=== PATIENT | female | born 1945 | race Two or more races ===

== ENCOUNTER 2024-05-08 13:18 | Emergency (ER) | payer MEDICAID, SELFPAY ==
[2024-05-08 14:17] VITALS: BP 148/82; PULSE 82; RESP 19; TEMP 36.9; O2SAT 97; BMI 38.5
--- NOTE | 2024-05-08 14:20 | PD.EDRME ---
Rapid Medical Screening Exam E Arrival date/time: 05/08/24 13:18 78-year-old female history of anxiety, CHF hypertension presents to the emergency department with complaints of chest pain, shortness of breath x 1 day. I have greeted and performed a focused initial assessment of this patient. Initial appropriate labs ordered at this time. A comprehensive ED assessment and evaluation of the patient and analysis of all test and completion of medical decision making process will be conducted by additional ED provider. Chief Complaint: General Adult/Misc Complain Time Seen by Provider: 05/08/24 14:00 Vital signs: Vital Signs Temperature 98.5 F 05/08/24 14:17 Pulse Rate 82 05/08/24 14:17 Respiratory Rate 19 05/08/24 14:17 Blood Pressure 148/82 H 05/08/24 14:17 Pulse Oximetry (%) 97 05/08/24 14:17 Oxygen Delivery Method Room Air 05/08/24 14:17
--- NOTE | 2024-05-08 14:21 | XR_ITS ---
Examination: PA chest single view TECHNIQUE: Upright PA chest single view Exam date and time: May 08, 2024 1551 hours Comparison October 11, 2021 INDICATIONS: Chest pain today. FINDINGS: Mild prominence cardiac contour Opacity left base obscuring detail left hemidiaphragm No pulmonary edema Right internal jugular Port-A-Cath tip satisfactory position SVC IMPRESSION: Early pneumonia left base
--- NOTE | 2024-05-08 14:21 | EKG_ITS ---
[facility] Test Date: 2024-05-08 Pat Name: JUAN DIEGO AMARAL Department: Room: - Gender: Female Information Technology Technician: : 1945 Requested By: Carri Grider ([facility]) Ivet Order Number: [id number] Reading MD: Carri Grider ([facility]) Ivet Measurements Intervals [place] Rate: 69 P: [place]: QRS: 9 QRSD: 101 T: 25 QT: 432 QTc: 463 Interpretive Statements SINUS RHYTHM WITH 2ND DEGREE AV BLOCK, MOBITZ TYPE II INCOMPLETE RIGHT BUNDLE BRANCH BLOCK [90+ ms QRS DURATION, TERMINAL R IN V1/V2, 40+ ms S IN I/aVL/V4/V5/V6] Compared to ECG 10/18/2021 14:44:30 Incomplete right bundle-branch block now present Atrial fibrillation no longer present Ventricular premature complex(es) no longer present Aberrant conduction of supraventricular beat(s) no longer present /store/S0/[id number].pdf
[2024-05-08 14:56] LABS: Basophils # (Auto) 0.1 Thou/mm3 (0.0-0.2); Basophils % (Auto) 1 % (0-2.5); Eosinophils # (Auto) 0.2 Thou/mm3 (0.0-0.5); Eosinophils % (Auto) 2 % (0-10); Immature Granulocytes % (Auto) 0 % (0-0); Lymphocytes # (Auto) 7.8 Thou/mm3 (1.0-4.8); Lymphocytes % (Auto) 88 % (10-50); Mean Corpuscular HGB Conc 33.3 g/dl (31.0-37.0); Mean Corpuscular Hemoglobin 33.6 pg (25.0-35.0); Mean Corpuscular Volume 101 fL (80-100); Monocytes # (Auto) 0.8 Thou/mm3 (0.0-0.8); Monocytes % (Auto) 10 % (0-12); Neutrophils % (Auto) 0 % (37-80); Nucleated Red Blood Cell % 0 /100 WBC (0); Platelet Count 194 Thou/mm3 (140-440); RDW Standard Deviation 49.3 fL (36.4-46.3); Red Blood Count 3.87 Miln/mm3 (4.00-5.20); White Blood Count 8.9 Thou/mm3 (3.6-11.0)
[2024-05-08 15:10] LABS: INR 1.4 (0.9-1.3); Partial Thromboplastin Time 33.6 Seconds (22.0-36.0); Prothrombin Time 14.6 Seconds (9.0-12.2)
[2024-05-08 15:14] LABS: B-Type Natriuretic Peptide 282 pg/mL (0-100)
[2024-05-08 15:15] LABS: Alanine Aminotransferase 11 U/L (10-49); Albumin, Serum 4.4 gm/dL (3.4-4.8); Albumin/Globulin Ratio 2.2 (1.2-2.2); Alkaline Phosphatase 92 U/L (46-116); Anion Gap 8 (7-16); Aspartate Amino Transferase 21 U/L (0-34); BUN/Creatinine Ratio 19 Ratio (12-20); Bilirubin,Total 0.6 mg/dL (0.3-1.2); Blood Urea Nitrogen 21 mg/dL (9-23); Calcium 9.6 mg/dL (8.3-10.6); Calcium (Corrected) 9.6 mg/dL (8.5-10.1); Carbon Dioxide 30.3 mMol/L (20.0-31.0); Chloride 104 mMol/L (98-107); Creatinine (Component) 1.1 mg/dL (0.6-1.3); Glucose 87 mg/dL (74-106); Lipase 31 U/L (12-53); Magnesium 2.2 mg/dL (1.6-2.6); Osmolality,Calculated 285 (275-295); Potassium 4.2 mMol/L (3.4-5.1); Sodium 142 mMol/L (136-145); Total Protein 6.4 gm/dL (5.7-8.2); Troponin I < 0.020 ng/mL (0.0-0.045); eGFR 51 See Note
[2024-05-08 15:45] LABS: Path Review Blood Smear Sent to Pathologist
[2024-05-08 19:32] VITALS: BP 137/59; PULSE 68; RESP 17; TEMP 36.8; O2SAT 95
--- NOTE | 2024-05-08 20:35 | EDNOTE_ITS ---
ED General RME/HPI General Chief complaint: General Adult/Misc Complain Stated complaint: HIGH B/P x1 WEEK Time Seen by Provider: 05/08/24 14:00 Source: patient Arrival date/time: 05/08/24 13:18 78-year-old female past medical history of anxiety, CHF, hypertension, and lymphoma presents emergency department complaining of chest pain and shortness of breath for 1 day. Patient denies any fever, chills, vomiting, diarrhea, or any other associated symptom. Mode of arrival: ambulatory Limitations: no limitations RME / HPI RME / HPI narrative: 05/08/24 13:18 78-year-old female history of anxiety, CHF hypertension presents to the emergency department with complaints of chest pain, shortness of breath x 1 day. I have greeted and performed a focused initial assessment of this patient. Initial appropriate labs ordered at this time. A comprehensive ED assessment and evaluation of the patient and analysis of all test and completion of medical decision making process will be conducted by additional ED provider. Related Data Home Medications ?Medication ?Instructions ?Recorded ?Confirmed alprazolam 0.25 mg tablet 0.25 mg PO QDAY 07/13/20 10/12/21 ascorbic acid (vitamin C) 500 mg 500 mg PO QDAY 07/13/20 10/12/21 tablet (Vitamin C) ferrous sulfate 325 mg (65 mg 325 mg PO QDAY 07/13/20 10/12/21 iron) tablet furosemide 40 mg tablet 40 mg PO DAILY 07/13/20 10/12/21 ibuprofen 600 mg tablet 600 mg PO TID PRN Pain 10/12/21 10/12/21 losartan 100 1 tab PO QDAY 10/12/21 10/12/21 mg-hydrochlorothiazide 25 mg tablet meloxicam 7.5 mg tablet 7.5 mg PO QDAY 10/12/21 10/12/21 potassium chloride 8 mEq 1 cap PO BID 10/12/21 10/12/21 capsule,extended release prednisone 20 mg tablet 1 tab PO Q8H 10/12/21 10/12/21 rivaroxaban 20 mg tablet (Xarelto) 1 tab PO QDAY 10/12/21 10/12/21 Previous Rx's ?Medication ?Instructions ?Recorded amoxicillin 875 mg-potassium 1 tab PO BID 5 days #10 tabs 05/08/24 clavulanate 125 mg tablet doxycycline hyclate 100 mg capsule 100 mg PO BID 5 days #10 caps 05/08/24 Allergies Allergy/AdvReac Type Severity Reaction Status Date / Time sulfamethoxazole Allergy Unknown Verified 05/08/24 13:21 [From Bactrim] trimethoprim [From Bactrim] Allergy Unknown Verified 05/08/24 13:21 Review of Systems Review of Systems Systems Reviewed: All systems reviewed, normal except as documented Constitutional Constitutional: Reports system reviewed and no additional complaints, except as documented, Denies body ache(s), Denies chills and Denies fever(s) Eyes Eyes: Reports system reviewed and no additional complaints, except as documented and Denies change in vision ENT Ears, Nose, Mouth, and Throat: Reports system reviewed and no additional complaints, except as documented, Denies disequilibrium, Denies dizziness, Denies sore throat and Denies vertigo Cardiovascular Cardiovascular: Reports system reviewed and no additional complaints, except as documented, Reports chest pain and Reports dyspnea Respiratory Respiratory: Reports system reviewed and no additional complaints, except as documented, Denies chest congestion, Denies cough and Reports dyspnea Gastrointestinal Gastrointestinal: Reports system reviewed and no additional complaints, except as documented, Denies abdominal pain, Denies nausea and Denies vomiting Musculoskeletal Musculoskeletal: Reports system reviewed and no additional complaints, except as documented, Denies abnormal gait and Denies arthralgias Integumentary/Breasts Skin/Breast: Reports system reviewed and no additional complaints, except as documented, Denies erythema, Denies rash and Denies wounds Neurologic Neurologic: Reports system reviewed and no additional complaints, except as documented, Denies abnormal gait, Denies disequilibrium, Denies dizziness and Denies vertigo Past Medical History Past Medical History NEUROLOGIC: Positive Jim's Palsy; Negative Seizures CARDIAC: Positive Cardiac Disorders (HTN) and Hypertension; Negative Congestive Heart Failure RESPIRATORY: Positive Bronchitis; Negative Chronic Obstructive Pulmonary Disease (COPD) or Asthma GASTROINTESTINAL: Positive Gastrointestinal Disorders, Gall Bladder Disease and Obesity GENITOURINARY: Negative Renal Disease MUSCULOSKELETAL: Positive Arthritis ENDOCRINE: Negative Diabetes Mellitus Type 1 or Diabetes Mellitus Type 2 HEMATOLOGIC: Positive Blood Disorders; Negative Sickle Cell Disease PSYCHO/SOCIAL: Positive Anxiety OTHER HISTORY: Positive Chemotherapy and Cancer (History of B cell lymphoma treated with chemo last completed about a year); Negative Blood Transfusions, Blood Transfusion Reaction or Anesthesia Reactions Social History SMOKING STATUS: Never smoker SUBSTANCE USE: does not use ED Exam General Limitations: Present no limitations General appearance: Present alert and in no apparent distress Head Head exam: Present atraumatic Eye Eye exam: Present normal appearance, PERRL and EOMI ENT ENT exam: Present normal exam, normal oropharynx and mucous membranes moist Neck Neck exam: Present normal inspection, full ROM and trachea midline Chest Chest inspection: Present normal inspection and symmetric chest wall rise Respiratory Respiratory exam: Present normal lung sounds bilaterally Cardiovascular Cardiovascular exam: Present regular rate, normal rhythm and normal heart sounds Abdominal Exam Abdominal exam: Present soft and normal bowel sounds Extremities Exam Extremities exam: Present normal inspection and full ROM Back Exam Back exam: Present normal inspection and full ROM Neurological Exam Neurological exam: Present alert, oriented X3 and CN II-XII intact Psychiatric Psychiatric exam: Present normal affect and normal mood Skin Skin exam: Present warm, dry, intact and normal color Course Quality Measures none Orders Category Date Time Status Education And Development Manager STAT Care 05/08/24 14:21 Completed Continuous Pulse Oximetry ONCE Care 05/08/24 14:21 Completed EKG (ED ONLY) *Do not use* NOW Care 05/08/24 14:21 Completed EKG (ED Only) Stat Exams 05/08/24 14:21 Draft XR chest 1V portable Stat Exams 05/08/24 14:21 Completed B-Type Natriuretic Peptide Stat Lab 05/08/24 14:42 Completed CBC Stat Lab 05/08/24 14:42 Completed Comprehensive Metabolic Panel Stat Lab 05/08/24 14:42 Completed Lipase Stat Lab 05/08/24 14:42 Completed Magnesium Stat Lab 05/08/24 14:42 Completed Partial Thromboplastin Time Stat Lab 05/08/24 14:42 Completed Path Review Blood Smear Stat Lab 05/08/24 14:42 Completed Prothrombin Time with INR Stat Lab 05/08/24 14:42 Completed Troponin I Stat Lab 05/08/24 14:42 Completed cefTRIAXone [Rocephin] 1,000 mg Med 05/08/24 20:39 Discontinued Lidocaine 1% 20 ml [Xylocaine 1% 20 ML] 2.1 ml IM X1 Vital Signs Vital signs: Vital Signs Temperature 98.5 F 05/08/24 14:17 Pulse Rate 82 05/08/24 14:17 Respiratory Rate 19 05/08/24 14:17 Blood Pressure 148/82 H 05/08/24 14:17 Pulse Oximetry (%) 97 05/08/24 14:17 Oxygen Delivery Method Room Air 05/08/24 14:17 97% room air within normal limits Procedures -ED EKG Interpretation #1: Date of EK05/08/24 Time of EK:28 Rate: 69 Interpretation: Interpreted by me EKG Impression: Normal sinus rhythm, Bundle branch block and No ischemic changes MDM Patient data External records reviewed:: [facility] previous records Clinical information provided by:: patient and family Social determinants that could affect healthcare access:: none Patient has the following chronic illnesses:: See chart How is presenting disease/condition affected by chronic disease/condition?: u neffected by Evaluation data The following diagnostics were reviewed and interpreted by me:: lab results, radiology exam(s) and EKG tracing(s) Lab and/or radiology exams considered but not ordered:: Ordered Interpretation Summary: Interpreted by me Medications Medications considered but not ordered:: Ordered Medication administrations:: Medication Administration History Discontinued Medications Ceftriaxone Sodium 1,000 mg/ (Lidocaine HCl 2.1 ml) 0 mg IM X1 ONE Stop: 05/08/24 20:40 Last Admin: 05/08/24 20:59 Dose: 1,000 mg Documented By: KF Given Consultations Consultation(s) initiated? (list below): No Diagnosis Differential Diagnosis ED Complaint MDM: Pneumothorax, NSTEMI, CHF exacerbation, cardiac arrhythmia Most likely diagnosis given after review of the tests above:: Pneumonia Admission Indicated Admission indicated?: not indicated Explain why admission is indicated or not indicated:: No admission criteria Admission Request Was there a request for admission?: No Disposition Plan Disposition Plan: Discharge Discharge Attestation Discharge Attestation: The patient and all family members were given an opportunity to ask questions and understood the discharge instructions. Discharge instructions specifically effects, indications for sooner follow up or return to the emergency department, and the expected course of current diagnosis. Patient condition: Stable Medical Decision Making MDM Narrative MDM Narrative: 78-year-old female past medical history of anxiety, CHF, hypertension, and lymphoma presents emergency department complaining of chest pain and shortness of breath for 1 day. Patient denies any fever, chills, vomiting, diarrhea, or any other associated symptom. CBC unremarkable for any leukocytosis or anemia. CMP was unremarkable. BNP 282. Troponin within normal limits. EKG sinus rhythm with AV block Mobitz type II patient reports she is currently on amiodarone for atrial fibrillation and reports has visit with her car installations supervisor tomorrow morning. Chest x-ray impression early left base pneumonia. Will treat with antibiotics given Rocephin IM and discharged on dual therapy Augmentin and doxycycline to avoid medication for prolonged QT. Urinalysis was unremarkable. Patient appears nontoxic and is hemodynamically stable. Patient and son instructed have close follow-up with primary care provider and also to keep her appointment with car installations supervisor tomorrow morning instructed to return immediately to emergency department for any worsening chest pain, shortness of breath, or as needed. Differential Diagnosis Differential Diagnosis: Pneumothorax, NSTEMI, CHF exacerbation, cardiac arrhythmia Lab Data 05/08/24 14:42 05/08/24 14:42 Labs: Lab Results 05/08/24 Range/Units 14:42 WBC 8.9 (3.6-11.0) Thou/mm3 RBC 3.87 L (4.00-5.20) Miln/mm3 Hgb 13.0 (12.0-16.0) g/dL Hct 39.0 (36.0-46.0) % MCV 101 H (80-100) fL MCH 33.6 (25.0-35.0) pg MCHC 33.3 (31.0-37.0) g/dl RDW Std Deviation 49.3 H (36.4-46.3) fL Plt Count 194 (140-440) Thou/mm3 Neut % (Auto) 0 L (37-80) % Lymph % (Auto) 88 H (10-50) % [place] % (Auto) 10 (0-12) % Eos % (Auto) 2 (0-10) % Baso % (Auto) 1 (0-2.5) % Neut # (Auto) 0.0 L (1.8-7.7) Thou/mm3 Lymph # (Auto) 7.8 H (1.0-4.8) Thou/mm3 [place] # (Auto) 0.8 (0.0-0.8) Thou/mm3 Eos # (Auto) 0.2 (0.0-0.5) Thou/mm3 Baso # (Auto) 0.1 (0.0-0.2) Thou/mm3 Immature Gran # (Auto) 0.00 (0.00-0.00) Thou/mm3 Absolute Nucleated RBC 0.00 (0.00-0.00) Thou/mm3 Immature Gran % 0 (0-0) % Nucleated RBC % 0 (0) /100 WBC Smear Path Review Sent to Pathologist PT 14.6 H (9.0-12.2) Seconds INR 1.4 H (0.9-1.3) APTT 33.6 (22.0-36.0) Seconds Sodium 142 (136-145) mMol/L Potassium 4.2 (3.4-5.1) mMol/L Chloride 104 (98-107) mMol/L Carbon Dioxide 30.3 (20.0-31.0) mMol/L Anion Gap 8 (7-16) BUN 21 (9-23) mg/dL Creatinine 1.1 (0.6-1.3) mg/dL Estim Creat Clear Calc 43.0 L (>60) mL/min eGFR 51 L (60 - ) See Note BUN/Creatinine Ratio 19 (12-20) Ratio Glucose 87 (74-106) mg/dL Calculated Osmolality 285 (275-295) Calcium 9.6 (8.3-10.6) mg/dL Corrected Calcium 9.6 (8.5-10.1) mg/dL Magnesium 2.2 (1.6-2.6) mg/dL Total Bilirubin 0.6 (0.3-1.2) mg/dL AST 21 (0-34) U/L ALT 11 (10-49) U/L Alkaline Phosphatase 92 (46-116) U/L Troponin I < 0.020 (0.0-0.045) ng/mL B-Natriuretic Peptide 282 H (0-100) pg/mL Total Protein 6.4 (5.7-8.2) gm/dL Albumin 4.4 (3.4-4.8) gm/dL Globulin 2.0 L (2.3-3.5) gm/dL Albumin/Globulin Ratio 2.2 (1.2-2.2) Lipase 31 (12-53) U/L Discharge Plan Plan Patient Disposition: HOME (Self Care) Disposition Comment: Stable Prescriptions/Referrals Prescriptions/Med Rec: New doxycycline hyclate 100 mg capsule 100 mg PO BID 5 Days Qty: 10 0RF amoxicillin-pot clavulanate 875-125 mg tablet 1 tab PO BID 5 Days Qty: 10 0RF No Action furosemide 40 mg tablet 40 mg PO DAILY Patient Comments: TAKE ONE TABLET BY MOUTH EVERY DAY alprazolam 0.25 mg Tablet 0.25 mg PO QDAY ferrous sulfate 325 mg (65 mg iron) Tablet 325 mg PO QDAY ascorbic acid (vitamin C) [Vitamin C] 500 mg Tablet 500 mg PO QDAY potassium chloride 8 mEq capsule, extended release 1 cap PO BID Patient Comments: TAKE ONE CAPSULE BY MOUTH TWICE DAILY WITH FOOD prednisone 20 mg tablet 1 tab PO Q8H Patient Comments: TAKE TWO TABLETS BY MOUTH EVERY DAY FOR FOUR DAYS ibuprofen 600 mg Tablet 600 mg PO TID PRN (Reason: Pain) meloxicam 7.5 mg Tablet 7.5 mg PO QDAY losartan-hydrochlorothiazide 100-25 mg tablet 1 tab PO QDAY Patient Comments: TAKE ONE TABLET BY MOUTH EVERY DAY Xarelto 20 mg tablet 1 tab PO QDAY Patient Comments: TAKE ONE TABLET BY MOUTH AT BEDTIME Referrals: Vinay Stroud [Primary Care Provider] - In 1 week Problem List Clinical Impression: Pneumonia Patient/Caregiver Discharge Instructions Discharge Activity: activity as tolerated Education Materials: ED Pneumonia (Adult) Additional Instructions: Take antibiotics as prescribed. Keep your appointment with your car installations supervisor tomorrow as we discussed. Follow-up with your primary care provider in 2 to 3 days. Return to emergency department for any shortness of breath increased chest pain or as needed. Print Language: Turkish Stand Alone Forms: Barbara Award Info., Patient Portal Info Letter PA/TRIMMING CUTTER Supervising Physician PA/TRIMMING CUTTER Supervising Physician: Dr. Cannon
[2024-05-08] MEDS: cefTRIAXone 1,000 MG, LIDOCAINE 1% 20 ML 2.1 ML IM (20:59)
== END 2024-05-08 21:03 | disposition home or self-care (01) ==
PROVIDERS: Nurse Practitioner Primary Care; Emergency Provider Emergency Medicine; PCP Physician Assistant
DX: J18.9 Pneumonia, unspecified organism (principal); I11.0 Hypertensive heart disease with heart failure; I50.9 Heart failure, unspecified
CPT/HCPCS: 36415; 71045; 80053; 83690; 83735; 83880; 84484; 85025; 85610; 85730; 93005; 96372; 99283; J0696; J3490

== ENCOUNTER → 2024-05-29 | Outpatient (CLI) | payer MEDICAID, SELFPAY ==
--- NOTE | 2024-05-29 11:00 | XR_ITS ---
Examination: CT chest with intravenous contrast CT abdomen with intravenous contrast CT pelvis with intravenous contrast 2-D coronal and sagittal reconstructions Time of exam: May 29, [address] abdomen October 19, 2021 INDICATIONS: Diagnosis B-cell lymphoma diagnosis 2019, also history colon surgery 2019, restaging CTDI: vol (mGy) : 11.5 DLP: (mGycm): 787 Technique: Multiple axial images of the chest, abdomen and pelvis with intravenous contrast, 3.0 mm slice thickness. Images obtained post intravenous injection Isovue 370 60 cc. 2-D sagittal and coronal reconstructions. Low dose protocols were performed. One or more of the following dose reduction techniques were used; automated exposure control, adjustment of the mA and/or KV according to patient size, use of iterative reconstruction technique. Findings: No thoracic aortic aneurysm dilatation or dissection No pulmonary artery emboli No paratracheal tracheobronchial or bronchopulmonary adenopathy 2 mm pulmonary nodule posterior right lung image 160 8mm pulmonary nodule right lower lobe image 259 No lobar pneumonia Liver mildly irregular in contour 13 mm splenic lesion No pancreatic mass Multiple lymph nodes in the mesentery measuring up to 12 mm Multiple pericaval periaortic lymph nodes, the largest pericaval 15 mm which has increased in size compared to the prior study No hydronephrosis Numerous much larger lymph nodes in the lower mesentery, measuring up to 24 mm and 36 mm in dimension No bowel obstruction Small common iliac and external iliac and common femoral lymph nodes Mild free fluid in the pelvis Retroverted uterus Urinary bladder intact Moderate osteopenia IMPRESSION: Pulmonary nodules as above, with this study as baseline recommend continued 6 month follow-up CT chest without contrast 13 mm solid splenic lesion Marked progression of mesenteric abdominal and pelvic lymphadenopathy compared to October 19, 2021
== END | disposition home or self-care (01) ==
PROVIDERS: PCP Physician Assistant; Referring Provider Internal Medicine Hematology & Oncology; Visit Provider Internal Medicine Hematology & Oncology
DX: R91.8 Other nonspecific abnormal finding of lung field (principal); D73.89 Other diseases of spleen; R59.0 Localized enlarged lymph nodes; C83.08 Small cell B-cell lymphoma, lymph nodes of multiple sites
CPT/HCPCS: 71260; 74177; A4649; Q9967

== ENCOUNTER → 2024-08-03 | Outpatient (CLI) | payer MEDICAID, SELFPAY ==
--- NOTE | 2024-08-03 16:20 | XR_ITS ---
Examination: PA lateral chest 2 views Technique: Upright PA lateral chest 2 views Exam date and time: August 03, 2024 1628 hrs. Comparison May 08, 2024 Indications: Coughing beginning 2 weeks ago. Findings: Significant pneumonia left base Mild enlargement cardiac contour No pulmonary edema. Right internal jugular Port-A-Cath tip SVC Prominent osteopenia Impression: Significant pneumonia left base
== END | disposition home or self-care (01) ==
PROVIDERS: PCP Physician Assistant; Referring Provider Nurse Practitioner Family; Visit Provider Nurse Practitioner Family
DX: J18.9 Pneumonia, unspecified organism (principal)
CPT/HCPCS: 71046

== ENCOUNTER 2024-12-06 10:56 | Emergency (ER) | payer MEDICAID, SELFPAY ==
[2024-12-06 11:15] VITALS: BP 142/81; PULSE 89; RESP 18; TEMP 36.6; O2SAT 96
[2024-12-06 11:16] VITALS: BMI 35.9
--- NOTE | 2024-12-06 11:21 | EKG_ITS ---
[facility] Test Date: 2024-12-06 Pat Name: JUAN DIEGO AMARAL Department: Room: - Gender: Female Youth Officer: : 1945 Requested By: Manan Feldman Order Number: [id number] Reading MD: Manan Feldman Measurements Intervals [place] Rate: 84 P: [place]: QRS: 18 QRSD: 95 T: 1 QT: 391 QTc: 463 Interpretive Statements ATRIAL FIBRILLATION LOW QRS VOLTAGE IN PRECORDIAL LEADS [QRS DEFLECTION < 1.0 mV IN CHEST LEADS] ABNORMAL RHYTHM ECG Compared to ECG 05/08/2024 14:28:51 Low QRS voltage now present Sinus rhythm no longer present Incomplete right bundle-branch block no longer present /store/S0/[id number]
--- NOTE | 2024-12-06 11:21 | XR_ITS ---
Examination: AP chest single view TECHNIQUE: AP sitting portable chest single view Date and time: December 06, 2024 1133 hours Comparison August 03, 2024 INDICATIONS: Chest pain shortness of breath beginning 2 days ago FINDINGS: Mild enlargement cardiac contour Mild opacity left base with small left pleural effusion Right internal jugular Port-A-Cath tip satisfactory position IMPRESSION: Mild parenchymal disease left base which may represent pneumonia with small left pleural effusion
--- NOTE | 2024-12-06 11:22 | PD.EDEXREM ---
ED Extremity Problem RME/HPI General Chief complaint: General Adult/Misc Complain Stated complaint: SWOLLEN LEGS Time Seen by Provider: 12/06/24 11:17 Source: patient and family Arrival date/time: 12/06/24 10:56 Mode of arrival: ambulatory Limitations: no limitations RME / HPI RME / HPI Narrative: 79-year-old female is here today with family members. She is here today with chronic lower leg edema and pain. She states she has had this for years but is gotten worse the last 15 days. She does have a history of anxiety, heart failure, and hypertension. She has no chest pain or shortness of breath. No near syncopal episodes. She has no other acute complaints. Related Data Home Medications ?Medication ?Instructions ?Recorded ?Confirmed alprazolam 0.25 mg tablet 0.25 mg PO QDAY 07/13/20 10/12/21 ascorbic acid (vitamin C) 500 mg 500 mg PO QDAY 07/13/20 10/12/21 tablet (Vitamin C) ferrous sulfate 325 mg (65 mg 325 mg PO QDAY 07/13/20 10/12/21 iron) tablet furosemide 40 mg tablet 40 mg PO DAILY 07/13/20 10/12/21 ibuprofen 600 mg tablet 600 mg PO TID PRN Pain 10/12/21 10/12/21 losartan 100 1 tab PO QDAY 10/12/21 10/12/21 mg-hydrochlorothiazide 25 mg tablet meloxicam 7.5 mg tablet 7.5 mg PO QDAY 10/12/21 10/12/21 potassium chloride 8 mEq 1 cap PO BID 10/12/21 10/12/21 capsule,extended release prednisone 20 mg tablet 1 tab PO Q8H 10/12/21 10/12/21 rivaroxaban 20 mg tablet (Xarelto) 1 tab PO QDAY 10/12/21 10/12/21 Allergies Allergy/AdvReac Type Severity Reaction Status Date / Time sulfamethoxazole (From Allergy Unknown Verified 12/06/24 11:01 Bactrim) trimethoprim (From Bactrim) Allergy Unknown Verified 12/06/24 11:01 Review of Systems Review of Systems Systems Reviewed: All systems reviewed, normal except as documented ED Exam General Limitations: Present no limitations General appearance: Present alert and in no apparent distress Head Head exam: Present atraumatic Eye Eye exam: Present normal appearance, PERRL and EOMI ENT ENT exam: Present normal exam, normal oropharynx and mucous membranes moist Neck Neck exam: Present normal inspection, full ROM and trachea midline Chest Chest inspection: Present normal inspection and symmetric chest wall rise Respiratory Respiratory exam: Present normal lung sounds bilaterally Cardiovascular Cardiovascular exam: Present regular rate, normal rhythm and normal heart sounds Abdominal Exam Abdominal exam: Present soft and normal bowel sounds Extremities Exam Extremities exam: Present normal inspection, full ROM and pedal edema (+4 bilaterally ) Back Exam Back exam: Present normal inspection and full ROM Neurological Exam Neurological exam: Present alert and oriented X3 Psychiatric Psychiatric exam: Present normal affect and normal mood Skin Skin exam: Present warm, dry, intact and normal color Course Quality Measures none Orders Category Date Time Status EKG (ED ONLY) *Do not use* NOW Care 12/06/24 11:21 Completed EKG (ED Only) Stat Exams 12/06/24 11:21 Draft XR chest 1V Stat Exams 12/06/24 11:21 Completed BNP [B-Type Natriuretic Peptide] Stat Lab 12/06/24 11:46 Completed CBC Stat Lab 12/06/24 11:46 Completed CMP [Comprehensive Metabolic Panel] Stat Lab 12/06/24 11:46 Completed Mag [Magnesium] Stat Lab 12/06/24 11:46 Completed Furosemide [Lasix] Med 12/06/24 11:21 Discontinued 40 mg PO X1 ONE Vital Signs Vital signs: Vital Signs Temperature 97.8 F 12/06/24 11:15 Pulse Rate 89 12/06/24 11:15 Respiratory Rate 18 12/06/24 11:15 Blood Pressure 142/81 H 12/06/24 11:15 Pulse Oximetry (%) 96 12/06/24 11:15 Oxygen Delivery Method Room Air 12/06/24 11:15 Extremity Problem MDM Narrative MDM Narrative:: 79-year-old female is here today with family members. She is here today with chronic lower leg edema and pain. She states she has had this for years but is gotten worse the last 15 days. She does have a history of anxiety, heart failure, and hypertension. She has no chest pain or shortness of breath. No near syncopal episodes. She has no other acute complaints. On exam, patient is nontoxic. No visible signs distress. She has significant bilateral, lower leg edema. Work appears essentially unremarkable with the exception of a mild anemia with a hemoglobin of 10.0 and hematocrit at 31.0. There is no leukocytosis. Her BNP is 328. Patient received a dose of furosemide here. We discussed the need for close outpatient follow-up for further therapies and assessment. We discussed return precautions. Patient agrees to return as needed for any worsening emergent changes. She will otherwise start using compression stockings and contact her PCP. Patient data External records reviewed:: [facility] previous records and None Clinical information provided by:: patient and family Social determinants that could affect healthcare access:: none Patient has the following chronic illnesses:: Hypertension, CHF, chronic leg edema How is presenting disease/condition affected by chronic disease/condition?: exacerbated by Evaluation data The following diagnostics were reviewed and interpreted by me:: lab results and radiology exam(s) Lab and/or radiology exams considered but not ordered:: n/a Interpretation Summary: Findings consistent with CHF Medications / Prescriptions Medications or Prescriptions considered but not ordered:: n/a Medication administrations:: Medication Administration History Discontinued Medications Furosemide (Furosemide 40 Mg Tablet) 40 mg PO X1 ONE Stop: 12/06/24 11:22 Last Admin: 12/06/24 11:59 Dose: 40 mg Documented By: YOU see above Consultations Consultation(s) initiated? (list below): No Diagnosis Extremity Problem Differential Diagnosis: lower extremity edema Most likely diagnosis given after review of the tests above:: see above Admission Indicated Admission indicated?: not indicated Admission Request Was there a request for admission?: No Disposition Plan Disposition Plan: Discharge Discharge Attestation Discharge Attestation: The patient and all family members were given an opportunity to ask questions and understood the discharge instructions. Discharge instructions specifically effects, indications for sooner follow up or return to the emergency department, and the expected course of current diagnosis. Patient condition: Stable Discharge Plan Plan Patient Disposition: HOME (Self Care) Patient condition on transfer: Stable Prescriptions/Referrals Prescriptions/Med Rec: No Action furosemide 40 mg tablet 40 mg PO DAILY Patient Comments: TAKE ONE TABLET BY MOUTH EVERY DAY alprazolam 0.25 mg Tablet 0.25 mg PO QDAY ferrous sulfate 325 mg (65 mg iron) Tablet 325 mg PO QDAY ascorbic acid (vitamin C) [Vitamin C] 500 mg Tablet 500 mg PO QDAY potassium chloride 8 mEq capsule, extended release 1 cap PO BID Patient Comments: TAKE ONE CAPSULE BY MOUTH TWICE DAILY WITH FOOD prednisone 20 mg tablet 1 tab PO Q8H Patient Comments: TAKE TWO TABLETS BY MOUTH EVERY DAY FOR FOUR DAYS ibuprofen 600 mg Tablet 600 mg PO TID PRN (Reason: Pain) meloxicam 7.5 mg Tablet 7.5 mg PO QDAY losartan-hydrochlorothiazide 100-25 mg tablet 1 tab PO QDAY Patient Comments: TAKE ONE TABLET BY MOUTH EVERY DAY Xarelto 20 mg tablet 1 tab PO QDAY Patient Comments: TAKE ONE TABLET BY MOUTH AT BEDTIME Referrals: Vinay Stroud [Primary Care Provider] - In 1 week Problem List Clinical Impression: CHF (congestive heart failure), Leg edema Patient/Caregiver Discharge Instructions Education Materials: Coping with Heart Failure Additional Instructions: - Continue your furosemide as prescribed. - Start using compression stockings to assist with your edema. - It is very important that she follows up with her primary doctor to schedule close follow-up appointment. Consider outpatient workup to assess for possible valve incompetency. - Return to the emergency room at anytime for any worsening or emergent changes. Print Language: Lithuanian Stand Alone Forms: Barbara Award Info., Patient Portal Info Letter
[2024-12-06 11:59] VITALS: BP 114/70; PULSE 72
[2024-12-06 12:09] LABS: Basophils # (Auto) 0.0 Thou/mm3 (0.0-0.2); Basophils % (Auto) 0 % (0-2.5); Eosinophils # (Auto) 0.1 Thou/mm3 (0.0-0.5); Eosinophils % (Auto) 1 % (0-10); Hematocrit 31.0 % (36.0-46.0); Hemoglobin 10.0 g/dL (12.0-16.0); Immature Granulocytes Auto 0.12 Thou/mm3 (0.00-0.00); Lymphocytes # (Auto) 1.5 Thou/mm3 (1.0-4.8); Lymphocytes % (Auto) 20 % (10-50); Mean Corpuscular HGB Conc 32.3 g/dl (31.0-37.0); Mean Corpuscular Hemoglobin 32.1 pg (25.0-35.0); Mean Corpuscular Volume 99 fL (80-100); Monocytes # (Auto) 0.2 Thou/mm3 (0.0-0.8); Monocytes % (Auto) 2 % (0-12); Neutrophils # (Auto) 5.8 Thou/mm3 (1.8-7.7); Neutrophils % (Auto) 75 % (37-80); Nucleated Red Blood Cell # 0.00 Thou/mm3 (0.00-0.00); Nucleated Red Blood Cell % 0 /100 WBC (0); Platelet Count 224 Thou/mm3 (140-440); RDW Standard Deviation 54.4 fL (36.4-46.3); Red Blood Count 3.12 Miln/mm3 (4.00-5.20); White Blood Count 7.7 Thou/mm3 (3.6-11.0)
[2024-12-06 12:29] LABS: B-Type Natriuretic Peptide 328 pg/mL (0-100)
[2024-12-06 12:41] LABS: Alanine Aminotransferase 9 U/L (10-49); Albumin, Serum 3.6 gm/dL (3.4-4.8); Albumin/Globulin Ratio 2.1 (1.2-2.2); Alkaline Phosphatase 108 U/L (46-116); Anion Gap 10 (7-16); Aspartate Amino Transferase 12 U/L (0-34); BUN/Creatinine Ratio 13 Ratio (12-20); Bilirubin,Total 1.1 mg/dL (0.3-1.2); Blood Urea Nitrogen 17 mg/dL (9-23); Calcium 9.0 mg/dL (8.3-10.6); Calcium (Corrected) 9.3 mg/dL (8.5-10.1); Carbon Dioxide 32.3 mMol/L (20.0-31.0); Chloride 93 mMol/L (98-107); Creatinine (Component) 1.3 mg/dL (0.6-1.3); Estimated Creatinine Clearance 31.7 mL/min (>60); Globulin 1.7 gm/dL (2.3-3.5); Glucose 145 mg/dL (74-106); Magnesium 1.6 mg/dL (1.6-2.6); Osmolality,Calculated 274 (275-295); Potassium 3.3 mMol/L (3.4-5.1); Sodium 135 mMol/L (136-145); Total Protein 5.3 gm/dL (5.7-8.2); eGFR 42 See Note
[2024-12-06 13:07] VITALS: BP 116/69; PULSE 76; RESP 18; TEMP 36.9; O2SAT 96
== END 2024-12-06 13:39 | disposition home or self-care (01) ==
PROVIDERS: Physician Assistant Medical; Emergency Provider Emergency Medicine; PCP Physician Assistant
DX: I11.0 Hypertensive heart disease with heart failure (principal); I50.9 Heart failure, unspecified; F41.9 Anxiety disorder, unspecified
CPT/HCPCS: 36415; 71045; 80053; 83735; 83880; 85025; 93005; 99283; A9270

== ENCOUNTER 2024-12-16 12:00 | Emergency (ER) | payer MEDICAID, SELFPAY ==
[2024-12-16 12:04] VITALS: BMI 34.3
--- NOTE | 2024-12-16 12:08 | EKG_ITS ---
[facility] Test Date: 2024-12-16 Pat Name: JUAN DIEGO AMARAL Department: Room: - Gender: Female [employer]: : [id number] Requested By: ED Temporary Provider Order Number: [id number] Reading MD: ED Temporary Provider Measurements Intervals [place] Rate: 73 P: -66 NM: 94 QRS: 15 QRSD: 106 T: -10 QT: 390 QTc: 431 Interpretive Statements JUNCTIONAL RHYTHM INCOMPLETE RIGHT BUNDLE BRANCH BLOCK [90+ ms QRS DURATION, TERMINAL R IN V1/V2, 40+ ms S IN I/aVL/V4/V5/V6] ABNORMAL RHYTHM ECG Compared to ECG 12/06/2024 11:42:19 Junctional rhythm now present Incomplete right bundle-branch block now present Atrial fibrillation no longer present /store/S0/[id number]/ecg/[id number].pdf
[2024-12-16 12:39] VITALS: BP 94/63; PULSE 81; RESP 18; TEMP 36.8; O2SAT 96
--- NOTE | 2024-12-16 12:55 | XR_ITS ---
Exam: Chest 1 view, AP Date and time of exam: 12/16/2024, 1:11 PM INDICATION: Lower leg edema CHF Comparison: 12/06/2024 Findings: Stable right-sided Port-A-Cath. Stable cardiomegaly. Stable blunting of the left costophrenic angle with areas of increased density in the left lung base. Blunting the right costophrenic angle Remaining zones are clear. Impression: Stable cardiomegaly. Likely bilateral effusions, left greater than right with associated basilar atelectasis versus infiltrate.
--- NOTE | 2024-12-16 12:56 | PD.EDRME ---
Rapid Medical Screening Exam RME Arrival date/time: 12/16/24 12:00 Chief Complaint: General Adult/Misc Complain Time Seen by Provider: 12/16/24 12:39 Vital signs: Vital Signs Temperature 98.2 F 12/16/24 12:39 Pulse Rate 81 12/16/24 12:39 Respiratory Rate 18 12/16/24 12:39 Blood Pressure 94/63 12/16/24 12:39 Pulse Oximetry (%) 96 12/16/24 12:39 Oxygen Delivery Method Room Air 12/16/24 12:39 RME Narrative: 79-year-old female here with chest pain/sob hx chf and lymphoma. Currently on chemo has a port. Followed by oncology in [place]. States recently was taken off Lasix although she has heart failure due to her worsening kidney function. States right now she has diffuse abdominal pain chest pain shortness of breath. Her son's biggest concern is how swollen and uncomfortable she is.
[2024-12-16] MEDS: MORPHINE SULF INJ 10 MG/ML VIAL 4 MG IVP (13:33)
[2024-12-16 13:59] LABS: Basophils # (Auto) 0.1 Thou/mm3 (0.0-0.2); Basophils % (Auto) 1 % (0-2.5); Eosinophils # (Auto) 0.0 Thou/mm3 (0.0-0.5); Eosinophils % (Auto) 0 % (0-10); Hematocrit 29.6 % (36.0-46.0); Hemoglobin 9.7 g/dL (12.0-16.0); Immature Granulocytes Auto 0.24 Thou/mm3 (0.00-0.00); Lymphocytes # (Auto) 1.1 Thou/mm3 (1.0-4.8); Lymphocytes % (Auto) 8 % (10-50); Mean Corpuscular HGB Conc 32.8 g/dl (31.0-37.0); Mean Corpuscular Hemoglobin 32.7 pg (25.0-35.0); Mean Corpuscular Volume 100 fL (80-100); Monocytes # (Auto) 0.3 Thou/mm3 (0.0-0.8); Monocytes % (Auto) 2 % (0-12); Neutrophils # (Auto) 12.2 Thou/mm3 (1.8-7.7); Neutrophils % (Auto) 88 % (37-80); Nucleated Red Blood Cell # 0.00 Thou/mm3 (0.00-0.00); Nucleated Red Blood Cell % 0 /100 WBC (0); Platelet Count 326 Thou/mm3 (140-440); RDW Standard Deviation 54.2 fL (36.4-46.3); Red Blood Count 2.97 Miln/mm3 (4.00-5.20); White Blood Count 13.9 Thou/mm3 (3.6-11.0)
[2024-12-16 14:29] LABS: Alanine Aminotransferase 9 U/L (10-49); Albumin, Serum 3.4 gm/dL (3.4-4.8); Albumin/Globulin Ratio 2.1 (1.2-2.2); Alkaline Phosphatase 127 U/L (46-116); Anion Gap 7 (7-16); Aspartate Amino Transferase 12 U/L (0-34); BUN/Creatinine Ratio 15 Ratio (12-20); Bilirubin,Total 0.7 mg/dL (0.3-1.2); Blood Urea Nitrogen 21 mg/dL (9-23); Calcium 9.0 mg/dL (8.3-10.6); Calcium (Corrected) 9.5 mg/dL (8.5-10.1); Carbon Dioxide 26.2 mMol/L (20.0-31.0); Chloride 96 mMol/L (98-107); Creatinine (Component) 1.4 mg/dL (0.6-1.3); Estimated Creatinine Clearance 35.0 mL/min (>60); Globulin 1.6 gm/dL (2.3-3.5); Glucose 136 mg/dL (74-106); Lipase 19 U/L (12-53); Osmolality,Calculated 263 (275-295); Potassium 4.8 mMol/L (3.4-5.1); Sodium 129 mMol/L (136-145); Total Protein 5.0 gm/dL (5.7-8.2); Troponin I 0.025 ng/mL (0.0-0.045); eGFR 38 See Note
[2024-12-16 14:33] LABS: B-Type Natriuretic Peptide 368 pg/mL (0-100)
--- NOTE | 2024-12-16 15:01 | PD.EDADULT ---
ED General RME/HPI General Chief complaint: General Adult/Misc Complain Stated complaint: NOT FEELING WELL Time Seen by Provider: 12/16/24 12:39 Arrival date/time: 12/16/24 12:00 Limitations: no limitations RME / HPI RME / HPI narrative: 79-year-old female here with chest pain/sob hx chf and lymphoma. Currently on chemo has a port. Followed by oncology in [place]. States recently was taken off Lasix although she has heart failure due to her worsening kidney function. States right now she has diffuse abdominal pain chest pain shortness of breath. Her son's biggest concern is how swollen and uncomfortable she is. DR. KWON MAIN ED EVALUATION: 79 year old female with history of lymphoma undergoing treatment, atrial fibrillation on Xarelto, CHF presents to the ED for evaluation of global weakness and feeling unwell today. Accompanied by diffuse swelling. Patient reports she was recently taken off of the Lasix and noticed worsening swelling since. Denies fevers, chills, sweats, abdominal pain, n/v/d, or urinary symptoms. Related Data Home Medications ?Medication ?Instructions ?Recorded ?Confirmed alprazolam 0.25 mg tablet 0.25 mg PO QDAY 07/13/20 10/12/21 ascorbic acid (vitamin C) 500 mg 500 mg PO QDAY 07/13/20 10/12/21 tablet (Vitamin C) ferrous sulfate 325 mg (65 mg 325 mg PO QDAY 07/13/20 10/12/21 iron) tablet furosemide 40 mg tablet 40 mg PO DAILY 07/13/20 10/12/21 ibuprofen 600 mg tablet 600 mg PO TID PRN Pain 10/12/21 10/12/21 losartan 100 1 tab PO QDAY 10/12/21 10/12/21 mg-hydrochlorothiazide 25 mg tablet meloxicam 7.5 mg tablet 7.5 mg PO QDAY 10/12/21 10/12/21 potassium chloride 8 mEq 1 cap PO BID 10/12/21 10/12/21 capsule,extended release prednisone 20 mg tablet 1 tab PO Q8H 10/12/21 10/12/21 rivaroxaban 20 mg tablet (Xarelto) 1 tab PO QDAY 10/12/21 10/12/21 Allergies Allergy/AdvReac Type Severity Reaction Status Date / Time sulfamethoxazole (From Allergy Unknown Verified 12/06/24 11:01 Bactrim) trimethoprim (From Bactrim) Allergy Unknown Verified 12/06/24 11:01 Review of Systems Review of Systems Systems Reviewed: All systems reviewed, normal except as documented Past Medical History Past Medical History NEUROLOGIC: Positive Jim's Palsy CARDIAC: Positive Cardiac Disorders (HTN) and Hypertension RESPIRATORY: Positive Bronchitis GASTROINTESTINAL: Positive Gastrointestinal Disorders, Gall Bladder Disease and Obesity MUSCULOSKELETAL: Positive Arthritis HEMATOLOGIC: Positive Blood Disorders PSYCHO/SOCIAL: Positive Anxiety OTHER HISTORY: Positive Chemotherapy and Cancer (History of B cell lymphoma treated with chemo last completed about a year) Social History SMOKING STATUS: Never smoker SUBSTANCE USE: does not use ED Exam General Limitations: Present no limitations General appearance: Present alert and other (pale, appears weak ) Head Head exam: Present atraumatic Eye Eye exam: Present normal appearance, PERRL and EOMI ENT ENT exam: Present normal exam, normal oropharynx and mucous membranes moist Neck Neck exam: Present normal inspection, full ROM and trachea midline Chest Chest inspection: Present normal inspection and symmetric chest wall rise Respiratory Respiratory exam: Present normal lung sounds bilaterally Cardiovascular Cardiovascular exam: Present regular rate, normal rhythm and normal heart sounds Abdominal Exam Abdominal exam: Present soft and normal bowel sounds Extremities Exam Extremities exam: Present full ROM and other (3+ leg edema with scaling mild erythema ) Back Exam Back exam: Present normal inspection and full ROM Neurological Exam Neurological exam: Present alert, oriented X3 and CN II-XII intact Psychiatric Psychiatric exam: Present normal affect and normal mood Skin Skin exam: Present warm, dry, intact and normal color Course Quality Measures none Orders Category Date Time Status EKG (ED ONLY) *Do not use* NOW Care 12/16/24 12:08 Completed IV [Insert IV] NOW Care 12/16/24 12:55 Completed EKG (ED Only) Stat Exams 12/16/24 12:08 Draft XR chest 1V portable Stat Exams 12/16/24 12:55 Completed BNP [B-Type Natriuretic Peptide] Stat Lab 12/16/24 13:34 Completed CBC Stat Lab 12/16/24 13:34 Completed CMP [Comprehensive Metabolic Panel] Stat Lab 12/16/24 13:34 Completed Lipase Stat Lab 12/16/24 13:34 Completed Troponin I Stat Lab 12/16/24 13:34 Completed Aspirin Med 12/16/24 12:55 Discontinued 325 mg PO X1 ONE Morphine Inj Med 12/16/24 12:55 Discontinued 4 mg IVP X1 ONE Vital Signs Vital signs: Vital Signs Temperature 98.2 F 12/16/24 12:39 Pulse Rate 81 12/16/24 12:39 Respiratory Rate 18 12/16/24 12:39 Blood Pressure 94/63 12/16/24 12:39 Pulse Oximetry (%) 96 12/16/24 12:39 Oxygen Delivery Method Room Air 12/16/24 12:39 Pulse ox is 96% on room air which is adequate. Discharge Plan Plan Patient Disposition: HOME (Self Care) Prescriptions/Referrals Prescriptions/Med Rec: No Action furosemide 40 mg tablet 40 mg PO DAILY Patient Comments: TAKE ONE TABLET BY MOUTH EVERY DAY alprazolam 0.25 mg Tablet 0.25 mg PO QDAY ferrous sulfate 325 mg (65 mg iron) Tablet 325 mg PO QDAY ascorbic acid (vitamin C) [Vitamin C] 500 mg Tablet 500 mg PO QDAY potassium chloride 8 mEq capsule, extended release 1 cap PO BID Patient Comments: TAKE ONE CAPSULE BY MOUTH TWICE DAILY WITH FOOD prednisone 20 mg tablet 1 tab PO Q8H Patient Comments: TAKE TWO TABLETS BY MOUTH EVERY DAY FOR FOUR DAYS ibuprofen 600 mg Tablet 600 mg PO TID PRN (Reason: Pain) meloxicam 7.5 mg Tablet 7.5 mg PO QDAY losartan-hydrochlorothiazide 100-25 mg tablet 1 tab PO QDAY Patient Comments: TAKE ONE TABLET BY MOUTH EVERY DAY Xarelto 20 mg tablet 1 tab PO QDAY Patient Comments: TAKE ONE TABLET BY MOUTH AT BEDTIME Referrals: Vinay Stroud [Primary Care Provider] - In 1 week Problem List Clinical Impression: Chronic venous insufficiency, Acute hyponatremia Patient/Caregiver Discharge Instructions Education Materials: ED Dehydration (Adult), ED Leg Swelling in Both Legs, ED Hyponatremia Additional Instructions: Elevate your legs above the heart level while being at bedrest for 2 to 3 days. Wear compression stockings on a daily basis. Take a daily weight and record weight for your doctor. Continue your current medications as they are. Follow-up with your medical doctor regarding your sodium being low at 129 and having this problem with chronic leg edema or swelling Print Language: Syrian Stand Alone Forms: Barbara Award Info., Patient Portal Info Letter MDM Narrative MDM hospital course: Aline Beltran, am scribing for and in the presence of Dr. Kwon. Clinical Information Provided by patient and family Medical Records Reviewed [facility] Meds/Rx Considered, not Ordered None Labs/Rad/Tests considered, not Ordered None Chronic Illness/Social Conditions which may negatively complicate care or outcome(s)-explain: CHF/CAD/Cardiac illness and Cancer EKG EKG Interpretation narrative: Junctional rhythm, rate 73, incomplete right bundle branch block Lab Interpretation Labs: interpreted by me Imaging Imaging interpretation: interpreted by me Radiology reports / interpretation(s): Ordering Physician: Bianka Daily PA-C Date of Service: 12/16/24 Procedure(s): XR chest 1V portable Accession Number(s): [id number] cc: Bianka Daily PA-C; Vinay Bryant; Emmett Vasquez MD~ Exam: Chest 1 view, AP Date and time of exam: 12/16/2024, 1:11 PM INDICATION: Lower leg edema CHF Comparison: 12/06/2024 Findings: Stable right-sided Port-A-Cath. Stable cardiomegaly. Stable blunting of the left costophrenic angle with areas of increased density in the left lung base. Blunting the right costophrenic angle Remaining zones are clear. Impression: Stable cardiomegaly. Likely bilateral effusions, left greater than right with associated basilar atelectasis versus infiltrate. Dictated By: Emmett Vasquez MD Signed By: <Electronically signed by Emmett Vasquez MD in [place]> 12/16/24 1320 Medication Administration(s) Medication Administration History Discontinued Medications Aspirin (Aspirin 325 Mg Tablet) 325 mg PO X1 ONE Stop: 12/16/24 12:56 Last Admin: 12/16/24 13:33 Dose: 325 mg Documented By: EF Morphine Sulfate (Morphine Sulf Inj 10 Mg/Ml Vial) 4 mg IVP X1 ONE Stop: 12/16/24 12:56 Last Admin: 12/16/24 13:33 Dose: 4 mg Documented By: EF See above Diagnosis Most likely dx, and/or detailed dx discussion: hyponatremia, venous insufficiency, venous stasis dermatitis, lymphoma Dispositon Disposition: Discharge Home
[2024-12-16 16:32] VITALS: BP 98/62; PULSE 72; RESP 17; TEMP 36.7; O2SAT 95
== END 2024-12-16 18:00 | disposition home or self-care (01) ==
PROVIDERS: Physician Assistant; Emergency Provider Family Medicine; PCP Physician Assistant
DX: I87.2 Venous insufficiency (chronic) (peripheral) (principal); E87.1 Hypo-osmolality and hyponatremia; I11.0 Hypertensive heart disease with heart failure; I50.9 Heart failure, unspecified; I45.10 Unspecified right bundle-branch block; I48.91 Unspecified atrial fibrillation; Z79.01 Long term (current) use of anticoagulants
CPT/HCPCS: 36415; 71045; 80053; 81001; 83690; 83880; 84484; 85025; 93005; 96374; 99283; J2270; A9270

== ENCOUNTER → 2025-03-27 | Outpatient (CLI) | payer MEDICAID, SELFPAY ==
--- NOTE | 2025-03-27 12:30 | XR_ITS ---
Examination: MRI pelvis with intravenous contrast. MRI pelvis without intravenous contrast. Date and time of exam: March 27, 2025, 1401 hours INDICATIONS: Diagnosis small cell B-cell lymphoma, lymph nodes of multiple sites, marked progression of mesenteric abdominal and pelvic lymphadenopathy on CT chest abdomen pelvis May 29, 2024 Technique: Multiple axial, sagittal and coronal sections of the pelvis obtained. Transverse images, TR 6020, TE 107. T1 weighted transverse images, TR 582, TE 9.5. T2-weighted sagittal images, TR 4000, TE 105. T2-weighted sagittal images, TR 4000, TE 5. Coronal images, TR 4210, TE 107. Axial and coronal images are obtained post 18 cc gadolinium FINDINGS: 18 mm left external iliac lymph node 4 mm left 6 mm right common iliac lymph nodes No free fluid in the pelvis No presacral mass Contracted urinary bladder No pelvic mass Adequate marrow signal visualized lumbar and sacral segments IMPRESSION: Decrease in extent of pelvic lymphadenopathy compared to the CT pelvis May 29, 2024 No vaginal fistula depicted
== END | disposition home or self-care (01) ==
LOC: SMRI 03-29 07:58
PROVIDERS: PCP Physician Assistant; Referring Provider Internal Medicine Hematology & Oncology; Visit Provider Internal Medicine Hematology & Oncology
DX: R59.0 Localized enlarged lymph nodes (principal); C83.08 Small cell B-cell lymphoma, lymph nodes of multiple sites
CPT/HCPCS: 72197; A9577